=== PATIENT | female | born 1965 | race Caucasian/White ===

== ENCOUNTER 2017-07-01 07:12 | Day surgery (SDC) | payer BC ==
[~2017-07-01] VITALS: Ht 167.6 cm; Wt 91.9 kg
[2017-07-01 07:53] VITALS: Ht 167.6 cm; Wt 91.9 kg
[2017-07-01] MEDS ORDERED: [UNRECOGNIZED DRUG - OTHER] PO (07:56)
[2017-07-01] MEDS ORDERED: LANTUS (07:56)
[2017-07-01] MEDS ORDERED: PROPOFOL 20 ML ONE ×2 (08:53→13:34)
[2017-07-01] MEDS ORDERED: FENTAnyl 50 MCG/ML VIAL ONE (08:53)
[2017-07-01] MEDS ORDERED: MIDAZOLAM 1 MG/ML 2 ML INJ ONE (08:54)
[2017-07-01 09:08] VITALS: BP 156/83; PULSE 56; RESP 15
--- NOTE | 2017-07-01 09:42 | OPPN ---
Date/Time of Note Date/Time of Note DATE: 07/01/17 TIME: 09:41 Proc Note GI Procedure Date 07/01/17 Indication: screening/surveillance Pre-procedure Diagnosis Colon cancer screening Strong family history of colon cancer Post-procedure Diagnosis Successful polypectomy done 3 cm polyp at 50 cm successfully removed with hot snare polypectomy 1-1/2 cm polyp at 60 cm again successfully removed by hot snare polypectomy Hemorrhoid Procedure Performed: Colonoscopy Surgeon see signature line Drying Machine Back Tender none Anesthesia Type: MAC Tourniquet Time none EBL none Transfusion required none Biopsy 1: 2 polyps sent for histopathology Grafts/Implants none Tubes/Drains none Complication(s) none Disposition: PACU Procedure Description See dictated report HAYLEY VAZQEUZ MD Jul 01, 2017 09:42
--- NOTE | 2017-07-01 09:42 | OPPN ---
Date/Time of Note Date/Time of Note DATE: 07/01/17 TIME: 09:41 Proc Note GI Procedure Date 07/01/17 Indication: screening/surveillance Pre-procedure Diagnosis Colon cancer screening Strong family history of colon cancer Post-procedure Diagnosis Successful polypectomy done 3 cm polyp at 50 cm successfully removed with hot snare polypectomy 1-1/2 cm polyp at 60 cm again successfully removed by hot snare polypectomy Hemorrhoid Procedure Performed: Colonoscopy Surgeon see signature line Executor Of Estate none Anesthesia Type: MAC Tourniquet Time none EBL none Transfusion required none Biopsy 1: 2 polyps sent for histopathology Grafts/Implants none Tubes/Drains none Complication(s) none Disposition: PACU Procedure Description See dictated report HAYLEY VAZQUEZ MD Jul 01, 2017 09:42
[2017-07-01 10:05] VITALS: BP 103/65; RESP 19
--- NOTE | 2017-07-02 02:42 | GILP ---
DATE OF PROCEDURE: PROCEDURE: Colonoscopy with polypectomy. INDICATION: A 52-year-old female undergoing this procedure for colon cancer screening, strong famil y history of colon cancer and had rectal bleeding. INFORMED CONSENT: The risk of the procedure, related and unrelated complications, anesthetic risks, alternatives discussed. Informed consent was obtained. DESCRIPTION OF PROCEDURE: The patient was brought to the GI lab, sedated by the anesthesiologist. After optimal sedation, scope was passed with much ease into rectum, advanced further down into cecu m. Appendiceal orifice and IC valve identified. While coming out, mucosa was thoroughly inspected. At 60 cm, there was a 1.5 cm polyp. Successful hot snare polypectomy done and polyp was removed. Polyp was sent also for analysis. There was another large polyp about 3 cm in diameter. This was at 50 cm with a long stalk and hot snare polypectomy done. Polyp was retrieved and sent for analysi s. Patient had a hemorrhoid which was the cause of bleeding. She had 1 or 2 small mild diverticula . IMPRESSION: 1. Mild diverticulosis. 2. Two polyps successfully removed. One was 3 cm at 50 cm and another one 1.5 cm at 60 cm. 3. Hemorrhoids. 4. Clarity was good. 5. Cleanliness was somewhat inadequate. We can miss a small polyp also. PLAN: At this point is to review the histopathology of the polyp. The patient definitely needs a c olonoscopy in 2 to 3 years. Dictated By: HAYLEY HAND/MALIK Conf#: [id number] DID#: [id number] CC: Primary Care Physician;*EndCC*
== END 2017-07-01 11:53 | disposition home or self-care (01) ==
LOC: GIL 07:12
PROVIDERS: ATTEND Internal Medicine Gastroenterology
DX: Z12.11 Encounter for screening for malignant neoplasm of colon (principal); K63.5 Polyp of colon; K64.9 Unspecified hemorrhoids; E11.9 Type 2 diabetes mellitus without complications
CPT/HCPCS: 45380; 82962; 88305; J2250; J3010; Z7610